=== PATIENT | male | born 1975 | race Caucasian/White ===

== ENCOUNTER 2020-07-12 12:41 | Emergency (ER) | payer OTHER ==
[2020-07-12] MEDS ORDERED: ADENOSINE INJ/PF 6 MG/2 ML SDV IV ONE ×2 (12:53→13:31)
[2020-07-12] MEDS ORDERED: LORAZEPAM INJ 2 MG/1 ML VIAL IV ONE (13:09)
--- NOTE | 2020-07-12 13:16 | ER Document Report ---
ED General - General Chief Complaint: Chest Pain Stated Complaint: MEDICAL CLEARANCE/[facility] Notes: Chief complaint: Rapid heart rate History of present illness: 44-year-old male alcoholic sent here from [facility] for evaluation of rapid heart rate. Patient says he had been to the emergency department in [facility] yesterday for alcohol withdrawal symptoms and received "about 3 bags of IV fluid" and was subsequently cleared medically and sent to [facility] for voluntary admission for alcohol detox. He says that he did drink some whiskey this morning. When he arrived at [facility] he was feeling shaky and they noticed that he had a heart rate of approximately 200. He denies any prior history of SVT or cardiac problems. He denies chest pain, shortness of breath or vomiting. Patient says he does feel tremulous. Patient was sent directly to the emergency department for evaluation and management of his tachycardia. Patient is a cigarette smoker. He denies use of marijuana or other street drugs. Says he usually drinks about 1/5 of whiskey daily. He denies any other long-term medical problems. He has been hospitalized in the past for alcohol withdrawal but denies any prior medical admissions. No major surgery. No known allergies. No prescription medications. Patient says he has had a past history of alcohol withdrawal seizures. The last time this occurred was more than 6 months ago. He currently denies any visual auditory hallucinations but feels tremulous. - Related Data Allergies/Adverse Reactions: No Known Allergies Allergy (Unverified 07/12/20 13:00) Past Medical History - General Information source: Patient - Social History Smoking Status: Current Every Day Smoker Chew tobacco use (# tins/day): No Frequency of alcohol use: Heavy Drug Abuse: None Lives with: Friend Family History: Reviewed & Not Pertinent Patient has homicidal ideation: No - Past Medical History Cardiac Medical History: Reports: None Pulmonary Medical History: Reports: None Neurological Medical History: Reports: Hx Seizures Endocrine Medical History: Denies: Hx Diabetes Mellitus Type 1, Hx Diabetes Mellitus Type 2 Renal/ Medical History: Reports: None Malignancy Medical History: Reports None GI Medical History: Reports: None Musculoskeletal Medical History: Reports None Surgical Hx: Negative Review of Systems - Review of Systems Notes: Constitutional: Negative for fever. HENT: Negative for sore throat. Eyes: Negative for visual changes. Cardiovascular: Negative for chest pain. Respiratory: Negative for shortness of breath. Gastrointestinal: Negative for abdominal pain, vomiting or diarrhea. Genitourinary: Negative for dysuria. Musculoskeletal: Negative for back pain. Skin: Negative for rash. Neurological: As per HPI. Negative for headaches, weakness or numbness. 10 point ROS negative except as marked above and in HPI. Physical Exam - Vital signs Vitals: Temp Pulse Resp BP Pulse Ox 98.8 F 203 H 16 125/95 H 98 07/12/20 12:46 07/12/20 12:46 07/12/20 12:46 07/12/20 12:46 07/12/20 12:46 - Notes Notes: GENERAL: Slender male approximately stated age appears anxious and mildly tremulous with odor of alcohol present. SKIN: Cool and dry. Good turgor no rashes. HEAD: Normocephalic atraumatic. EYES: PERRLA. EOMI. Conjunctivae and sclerae clear. EARS: CANALS AND TMS CLEAR. NOSE: CLEAR. MOUTH: Moist mucosa. Good dentition. No stridor or edema. No drooling. NECK: Supple. No masses or thyromegaly. No adenopathy. Carotids 2+ without bruits. No JVD. BACK: Symmetrical without tenderness. CHEST: Respirations unlabored. Breath sounds clear and symmetrical. HEART: Tachycardic regular rhythm. No murmur gallop or rub. ABDOMEN: Soft nontender without masses, organomegaly or rebound. Bowel sounds normally active. No bruits. GENITALIA: Deferred. EXTREMITIES: No edema. No calf tenderness. Cap refill less than 1.5 seconds. Dorsalis pedis and posterior tibial pulses 3+ and symmetrical. NEUROLOGICAL: Mild generalized tremor. GCS 15. Alert and oriented x3. Fluent speech. Cranial nerves II through XII intact. Sensorimotor and cerebellar normal. Normal tone. PSYCHIATRIC: Appropriate affect. Course - Re-evaluation Re-evalutation: 07/12/20 13:19 Patient was in an SVT with a heart rate of approximately 200 when he arrived. He was awake and perfusing normally and denied chest pain although he did report some generalized weakness and some mild tremulousness. Vagal maneuvers x2 were attempted with no change in his rhythm. Subsequently he was given adenosine 6 mg IV and this converted him to a sinus tachycardia. He is going to receive an IV banana bag and some IV Ativan. We will obtain full medical work-up including repeat EKG, chest x-ray, CBC, comprehensive metabolic profile, troponin, serum m agnesium, urine drug screen, urinalysis, he will remain on cardiac monitoring in emergency department at this time. 07/12/20 19:33 Patient's magnesium was critically low at 1.0. And we gave him an IV banana bag here with supplemental magnesium over a period of several hours. He also got some IV Ativan. Sinus tachycardia gradually resolved and he felt better and tolerated p.o. fluids not any difficulty. He remained asymptomatic in the emergency department. His troponins were trended and he did not have any critical elevation. We note that he has elevation of his transaminases consistent with his chronic alcoholism he is also thrombocytopenic and has macrocytosis on CBC consistent with his alcohol abuse. He wants to go to [facility] and I think at this point I can medically clear him to do so. - Vital Signs Vital signs: Temp Pulse Resp BP Pulse Ox 98.1 F 203 H 17 127/92 H 97 07/12/20 18:01 07/12/20 12:46 07/12/20 13:06 07/12/20 18:01 07/12/20 18:01 - Laboratory Results Result Diagrams: 07/12/20 13:00 07/12/20 13:00 Laboratory Results Interpreted: 07/12/20 07/12/20 07/12/20 13:00 13:00 16:10 RBC 4.09 L MCV 100 H MCH 34.3 H RDW 15.2 H Plt Count 58 L Glucose 174 H Magnesium 1.0 L* AST 207 H ALT 103 H Urine Protein 100 H Urine Blood SMALL H Leukocyte Esterase Rfl TRACE H Salicylates < 1.0 L Acetaminophen < 10 L Critical Laboratory Results Reviewed: Yes Attending or Supervising Physician who Reviewed Labs: NICOLLE COOPER - Radiology Results Critical Radiology Results Reviewed: No Critical Results - EKG Interpretation by Me Additional EKG results interpreted by me: 07/12/20 13:21 Tracing #1 Twelve-lead EKG reviewed by me contemporaneously: 1251 hrs. Indication for study: Tachycardia Rhythm: SVT Rate: 190 Intervals: Normal QRS axis: +[address]/T wave changes: None Comparison with prior tracing: None Interpretation: SVT Tracing #2 Twelve-lead EKG reviewed by me contemporaneously: 1305 hrs. Indication for study: Follow-up chemical cardioversion Rhythm: Sinus tachycardia Rate: 125 Intervals: Normal intervals QRS axis: -[address]/T wave changes: Nonspecific T wave changes Comparison with prior tracing: Comparison with earlier tracing this date at 1251 hrs. shows conversion to sinus tachycardia Interpretation: Sinus tachycardia Critical Care Note - Critical Care Note Total time excluding time spent on procedures (mins): 35 - Chemical cardiov ersion with adenosine IV. Discharge - Discharge Clinical Impression: Paroxysmal supraventricular tachycardia, Chronic alcoholism, Hypomagnesemia Alcohol withdrawal syndrome Qualifiers: Complication of substance-induced condition: with unspecified complication Qualified Code(s): F10.239 - Alcohol dependence with withdrawal, unspecified Alcoholic hepatitis Qualifiers: Ascites presence: without ascites Qualified Code(s): K70.10 - Alcoholic hepatitis without ascites Condition: Stable Disposition: HOME, SELF-CARE Instructions: Paroxysmal Supraventricular Tachycardia ([facility]) Additional Instructions: Take prescribed medication. Do not drink alcohol. Go directly from here to [facility]. Prescriptions: Magnesium Oxide [Magnesium] 400 mg PO DAILY 30 Days #30 capsule
--- NOTE | 2020-07-12 13:30 | RADIOLOGY REPORT (SQ) ---
EXAM DESCRIPTION: CHEST SINGLE VIEW IMAGES COMPLETED DATE/TIME: 07/12/2020 1:15 pm REASON FOR STUDY: SVT COMPARISON: None. EXAM PARAMETERS: NUMBER OF VIEWS: One view. TECHNIQUE: Single frontal radiographic view of the chest acquired. RADIATION DOSE: NA LIMITATIONS: None. FINDINGS: LUNGS AND PLEURA: No opacities, masses or pneumothorax. No pleural effusion. MEDIASTINUM AND HILAR STRUCTURES: No masses. Contour normal. HEART AND VASCULAR STRUCTURES: Heart normal in size. Normal vasculature. BONES: No acute findings. HARDWARE: None in the chest. OTHER: No other significant finding. IMPRESSION: No acute cardiopulmonary abnormality. TECHNICAL DOCUMENTATION: JOB ID: [id number] 2010 [employer]- All Rights Reserved Reading location - IP/workstation name: [email or web address]
[2020-07-12] MEDS ORDERED: NORMAL SALINE 1000 ML 1,000 ML with POTASSIUM CHLORIDE 20 MEQ, MAGNESIUM SULFATE 8 MEQ,... IV SCH ×15 (13:32→18:00)
[2020-07-12 13:41] LABS: ABSOLUTE BASOPHILS # (AUTO) 0.1 10^3/uL (0.0-0.2); ABSOLUTE EOSINOPHILS # (AUTO) 0.3 10^3/uL (0.0-0.6); ABSOLUTE MONOCYTES (AUTO) 0.4 10^3/uL (0.1-1.4); ABSOLUTE NEUT (AUTO) 4.1 10^3/uL (1.7-8.2); BASOPHILS % (AUTO) 1.5 % (0-2); EOSINOPHILS % (AUTO) 4.9 % (0-6); LYMPHOCYTES % (AUTO) 28.2 % (13-45); MEAN CORPUSCULAR HEMOGLOBIN 34.3 pg (27.0-33.4); MEAN CORPUSCULAR HGB CONC 34.2 g/dL (32.0-36.0); MEAN CORPUSCULAR VOLUME 100 fl (80-97); MONOCYTES % (AUTO) 5.7 % (3-13); RED BLOOD COUNT 4.09 10^6/uL (4.35-5.55); RED CELL DISTRIBUTION WIDTH 15.2 % (11.5-14.0); SEGMENTED NEUTROPHILS % (AUTO) 59.7 % (42-78); TOTAL CELLS COUNTED % (AUTO) 100 %; WHITE BLOOD COUNT 6.9 10^3/uL (4.0-10.5)
[2020-07-12 13:57] LABS: ALBUMIN 4.7 g/dL (3.5-5.0); ALCOHOL 267 mg/dL (NONE DETECTED); ALKALINE PHOSPHATASE 89 U/L (38-126); ANION GAP 12 (5-19); ASPARTATE AMINO TRANSFERASE 207 U/L (17-59); BILIRUBIN,DIRECT 0.3 mg/dL (0.0-0.4); BILIRUBIN,TOTAL 0.5 mg/dL (0.2-1.3); BLOOD UREA NITROGEN 16 mg/dL (7-20); CALCIUM 9.5 mg/dL (8.4-10.2); CARBON DIOXIDE 25 mmol/L (22-30); CHLORIDE 105 mmol/L (98-107); GLUCOSE 174 mg/dL (75-110); POTASSIUM 4.5 mmol/L (3.6-5.0); TOTAL PROTEIN 7.8 g/dL (6.3-8.2)
[2020-07-12 13:59] LABS: ACETAMINOPHEN < 10 ug/mL (10-30); SALICYLATE < 1.0 mg/dL (2.0-20.0)
[2020-07-12 14:03] LABS: PLATELET COUNT 58 10^3/uL (150-450)
[2020-07-12 16:40] LABS: APPEARANCE,URINE SLIGHTLY-CLOUDY; BILIRUBIN,URINE NEGATIVE (NEGATIVE); COLOR,URINE YELLOW; GLUCOSE, URINE NEGATIVE (NEGATIVE); KETONES,URINE NEGATIVE (NEGATIVE); PROTEIN,URINE 100 mg/dL (NEGATIVE); URINE SPECIFIC GRAVITY 1.024; UROBILINOGEN,URINE NEGATIVE mg/dL (<2.0)
[2020-07-12 16:53] LABS: URINE AMPHETAMINES SCREEN NEGATIVE; URINE BARBITURATES SCREEN NEGATIVE; URINE BENZODIAZEPINES SCREEN UNCONFIRMED POSITIVE; URINE COCAINE SCREEN NEGATIVE; URINE MARIJUANA (THC) SCREEN NEGATIVE; URINE METHADONE SCREEN NEGATIVE; URINE PHENCYCLIDINE SCREEN NEGATIVE
[2020-07-12 19:51] VITALS: BP 142/98
--- NOTE | 2020-07-12 20:42 | EKG REPORT ---
SEVERITY:- ABNORMAL ECG - SUPRAVENTRICULAR TACHYCARDIA LVH WITH SECONDARY REPOLARIZATION ABNORMALITY : Confirmed by: Nay Wilkinson MD 12-Jul-2020 20:41:50
--- NOTE | 2020-07-12 20:42 | EKG REPORT ---
SEVERITY:- ABNORMAL ECG - SINUS TACHYCARDIA LVH WITH SECONDARY REPOLARIZATION ABNORMALITY : Confirmed by: Nay Wilkinson MD 12-Jul-2020 20:41:40
== END 2020-07-12 20:20 | disposition home or self-care (01) ==
LOC: ER 12:41
DX: I47.1 Supraventricular tachycardia (principal); F10.239 Alcohol dependence with withdrawal, unspecified; K70.10 Alcoholic hepatitis without ascites; E83.42 Hypomagnesemia; R53.1 Weakness; R25.1 Tremor, unspecified; D69.6 Thrombocytopenia, unspecified; D75.89 Other specified diseases of blood and blood-forming organs; F17.200 Nicotine dependence, unspecified, uncomplicated
CPT/HCPCS: 93005; 99285; 96375; 96365; 96366; 36415; 87086; 80307 ×4; 83735; 84443; 85025; 80053; 81001; 84484; 71045; 93010; J3475; J2060; J3480; J3411; J7030; J0153; J3490